=== PATIENT | male | born 1985 | race Hispanic/Latino ===

== ENCOUNTER 2019-04-10 20:16 | Emergency (ER) | payer OTHER ==
[~2019-04-10] VITALS: Ht 154.9 cm; Wt 67.1 kg
[2019-04-10] MEDS ORDERED: CHLORPROMAZINE HCL INJ 25 MG/ML AMP INJ ONE (20:30)
== END 2019-04-10 23:31 | disposition home or self-care (01) ==
LOC: ER 20:16
DX: R06.6 Hiccough (principal); G47.30 Sleep apnea, unspecified
CPT/HCPCS: 96372; 99282; J3230